=== PATIENT | female | born 1960 | race Caucasian/White ===

== ENCOUNTER 2016-08-23 10:38 | Emergency (ER) | payer OTHER ==
[~2016-08-23] VITALS: Ht 160 cm; Wt 65.0 kg
[2016-08-23 10:42] VITALS: BP 135/85; PULSE 93; RESP 16; TEMP 97.6
[2016-08-23] MEDS ORDERED: SODIUM CHLORIDE 0.9% FLUSH 10 ML FLUSH IVF PRN (10:45)
[2016-08-23] MEDS ORDERED: ACTIVATED CHARCOAL LIQUID 25 GM/120 ML BTL PO/NG ONE (10:45)
[2016-08-23 10:49] VITALS: O2SAT 95
--- NOTE | 2016-08-23 10:49 | PD ---
HPI Chief Complaint: Klonopin OD Time Seen by Provider: 10:44 Travel History International Travel<30 days: No Contact w/Intl Traveler<30days: No History of Present Illness HPI 55-year-old female arrives as a diaz act after she drank alcohol last night and ingested Klonopin evidently by the handful last night and again this morning , most recently about 2 hours prior to ER arrival. Location neuropsychiatric. Severity moderate. Timing constant. She reports a history of prior self harm attempt by medication ingestion. [facility] Social History Tobacco Use: No Allergies-Medications (Allergen,Severity, Reaction): Coded Allergies: Penicillin (Verified Allergy, Mild, 01/15/05) Review of Systems Except as stated in HPI: all other systems reviewed are Neg General / Constitutional: No: Fever, Chills Physical Exam Narrative GENERAL: 55-year-old female affect somewhat flat well-nourished well-developed SKIN: Focused skin assessment warm/dry. HEAD: Atraumatic. Normocephalic. EYES: Pupils equal and round. No scleral icterus. No injection or drainage. ENT: No nasal bleeding or discharge. Mucous membranes pink and moist. NECK: Trachea midline. No JVD. CARDIOVASCULAR: Regular rate and rhythm. No murmur appreciated. RESPIRATORY: No accessory muscle use. Clear to auscultation. Breath sounds equal bilaterally. GASTROINTESTINAL: Abdomen soft, non-tender, nondistended. Hepatic and splenic margins not palpable. MUSCULOSKELETAL: No obvious deformities. No clubbing. No cyanosis. No edema. NEUROLOGICAL: Awake and alert. No obvious cranial nerve deficits. Motor grossly within normal limits. Normal speech. PSYCHIATRIC: Self-harm reported. Flat affect. Data Data Last Documented VS Vital Signs Date Time Temp Pulse Resp B/P Pulse Ox O2 Delivery O2 Flow Rate FiO2 08/23/16 14:01 88 16 118/73 97 08/23/16 12:57 Room Air 08/23/16 10:42 97.6 Orders Electrocardiogram (08/23/16 ) Electrocardiogram (08/23/16 10:44) Complete Blood Count With Diff (08/23/16 10:44) Comprehensive Metabolic Panel (08/23/16 10:44) Iv Access Insert/Monitor (08/23/16 10:44) Ecg Monitoring (08/23/16 10:44) Oximetry (08/23/16 10:44) Psych Screen (08/23/16 10:44) Charcoal Activated Liq (Actidose-Aqua Li (08/23/16 10:45) Sodium Chloride 0.9% Flush (Ns Flush) (08/23/16 10:45) Drug Screen, Random Urine (08/23/16 10:44) Alcohol (Ethanol) (08/23/16 10:44) Salicylates (Aspirin) (08/23/16 10:44) Tylenol (Acetaminophen) (08/23/16 10:44) Sodium Chlor 0.9% 1000 Ml Inj (Ns 1000 M (08/23/16 11:45) Sodium Chlor 0.9% 1000 Ml Inj (Ns 1000 M (08/23/16 11:45) Basic Metabolic Panel (Bmp) (08/23/16 12:14) Labs Laboratory Tests Test 08/23/16 08/23/16 08/23/16 10:50 11:05 13:50 White Blood Count 8.2 TH/MM3 Red Blood Count 4.13 MIL/MM3 Hemoglobin 14.6 GM/DL Hematocrit 42.4 % Mean Corpuscular Volume 102.6 FL Mean Corpuscular Hemoglobin 35.5 PG Mean Corpuscular Hemoglobin 34.6 % Concent Red Cell Distribution Width 14.3 % Platelet Count 256 TH/MM3 Mean Platelet Volume 6.6 FL Neutrophils (%) (Auto) 89.5 % Lymphocytes (%) (Auto) 7.6 % Monocytes (%) (Auto) 2.6 % Eosinophils (%) (Auto) 0.0 % Basophils (%) (Auto) 0.3 % Neutrophils # (Auto) 7.3 TH/MM3 Lymphocytes # (Auto) 0.6 TH/MM3 Monocytes # (Auto) 0.2 TH/MM3 Eosinophils # (Auto) 0.0 TH/MM3 Basophils # (Auto) 0.0 TH/MM3 CBC Comment DIFF FINAL Differential Comment Sodium Level 141 MEQ/L 140 MEQ/L Potassium Level 4.0 MEQ/L 3.8 MEQ/L Chloride Level 105 MEQ/L 108 MEQ/L Carbon Dioxide Level 20.0 MEQ/L 19.4 MEQ/L Anion Gap 16 MEQ/L 13 MEQ/L Blood Urea Nitrogen 24 MG/DL 19 MG/DL Creatinine 1.00 MG/DL 0.88 MG/DL Estimat Glomerular Filtration 57 ML/MIN 66 ML/MIN Rate Random Glucose 104 MG/DL 248 MG/DL Calcium Level 8.9 MG/DL 7.8 MG/DL Total Bilirubin 0.3 MG/DL Aspartate Amino Transf 184 U/L (AST/SGOT) Alanine Aminotransferase 112 U/L (ALT/SGPT) Alkaline Phosphatase 90 U/L Total Protein 7.4 GM/DL Albumin 4.0 GM/DL Salicylates Level 1.8 MG/DL Acetaminophen Level LESS THAN 2.0 MCG/ML Ethyl Alcohol Level 238 MG/DL Urine Opiates Screen NEG Urine Barbiturates Screen NEG Urine Amphetamines Screen NEG Urine Benzodiazepines Screen NEG Urine Cocaine Screen NEG Urine Cannabinoids Screen NEG MDM Medical Decision Making Medical Screen Exam Complete: Yes Emergency Medical Condition: Yes Medical Record Reviewed: Yes Differential Diagnosis Altered mental status/psychosis due to infection/environmental exposure/ metabolic abnormality, polypharmacy, alcohol abuse/intoxication, illicit or prescribed drug abuse, malingering/secondary gain, non-organic psychiatric disease Narrative Course CBC & BMP Diagram 08/23/16 10:50 08/23/16 13:50 Repeat AG is 13 after 2L NS. Pt has been resting comfortably throughout ER stay. Urine tox leroy-negative Salicylates 1.8 APAP < 2.0 AST 184 ALT 112 The history of present illness, ROS, physical exam, review of records and medical workup performed for today's visit have reasonably safely excluded organic etiologies for the patient's presenting complaint. We will continue to monitor the patient carefully in the ER until time of evaluation by the psychiatry service. We are available for any additional medical assistance if needed during the patient's ER course. Disposition per discretion of psychiatry is appreciated. Diagnosis Primary Impression: Suicidal ideation Additional Impressions: Intentional benzodiazepine overdose Qualified Code: T42.4X2A - Intentional benzodiazepine overdose, initial encounter Alcohol intoxication Qualified Code: F10.929 - Alcohol intoxication, with unspecified complication German Devries MD Aug 23, 2016 10:49
[2016-08-23 11:07] LABS: AUTOMATED NEUTROPHIL # 7.3 TH/MM3 (1.8-7.7); BASOPHIL % 0.3 % (0.0-2.0); HEMATOCRIT 42.4 % (35.0-46.0); HEMO FLAGS DIFF FINAL; LYMPH % 7.6 % (9.0-44.0); LYMPHOCYTE # 0.6 TH/MM3 (1.0-4.8); MEAN CELL VOLUME 102.6 FL (80.0-100.0); MEAN CORPUSCULAR HEMOGLOBIN 35.5 PG (27.0-34.0); MEAN CORPUSCULAR HGB CONC 34.6 % (32.0-36.0); MONO % 2.6 % (0.0-8.0); NEUT % 89.5 % (16.0-70.0); PLATELET COUNT 256 TH/MM3 (150-450); RED BLOOD COUNT 4.13 MIL/MM3 (4.00-5.30); RED CELL DISTRIBUTION WIDTH 14.3 % (11.6-17.2); WHITE BLOOD COUNT 8.2 TH/MM3 (4.0-11.0)
[2016-08-23 11:31] LABS: ALT (GPT) 112 U/L (10-53); ANION GAP 16 MEQ/L (5-15); AST (GOT) 184 U/L (15-37); BLOOD UREA NITROGEN 24 MG/DL (7-18); CHLORIDE 105 MEQ/L (98-107); GLOMERULAR FILTRATION RATE 57 ML/MIN (>89); SODIUM (NA) 141 MEQ/L (136-145)
[2016-08-23 11:33] LABS: ACETAMINOPHEN LESS THAN 2.0 MCG/ML (10.0-30.0); ALKALINE PHOSPHATASE 90 U/L (45-117); TOTAL BILIRUBIN ADULT 0.3 MG/DL (0.2-1.0)
[2016-08-23] MEDS ORDERED: SODIUM CHLOR 0.9% 1000 ML INJ 1,000 ML IV ONE ×2 (11:45)
[2016-08-23 12:21] LABS: AMPHETAMINE, URINE NEG (NEG); BARBITURATES, URINE NEG (NEG); COCAINE, URINE NEG (NEG)
[2016-08-23 12:57] VITALS: BP 141/89; PULSE 89; RESP 16; O2SAT 98
[2016-08-23 14:01] VITALS: BP 118/73; PULSE 88; RESP 16; O2SAT 97
[2016-08-23 14:27] LABS: BICARBONATE 19.4 MEQ/L (21.0-32.0); POTASSIUM 3.8 MEQ/L (3.5-5.1)
[2016-08-23 15:47] VITALS: BP 143/92; PULSE 86; RESP 16; TEMP 99.3; O2SAT 95
[2016-08-23] MEDS ORDERED: LORazepam 2 MG TAB PO PRN (17:30)
[2016-08-23] MEDS ORDERED: LORazepam 2 MG/ML VIAL IM PRN ×4 (17:30)
[2016-08-23] MEDS ORDERED: FLUMAZENIL 0.5 MG/5 ML VIAL IV PUSH PRN (17:30)
[2016-08-23] MEDS ORDERED: LEVO100T63 PO (17:55)
[2016-08-23] MEDS ORDERED: VALT1TAB PO (17:55)
[2016-08-23] MEDS ORDERED: CLON.5 PO (17:56)
[2016-08-23] MEDS: LORazepam 1 MG TAB PO PRN (20:27)
[2016-08-24] MEDS: LORazepam 1 MG TAB PO PRN ×3 (00:24→13:15)
[2016-08-24 02:32] VITALS: BP 135/79; PULSE 79; RESP 18; O2SAT 98
[2016-08-24 06:23] VITALS: BP 132/80; PULSE 79; RESP 18; O2SAT 99
[2016-08-24 09:54] VITALS: BP 139/92; PULSE 73; RESP 18
[2016-08-24 13:25] VITALS: BP 148/88; PULSE 76; RESP 18; O2SAT 99
--- NOTE | 2016-08-24 15:10 | EKG ---
Date Performed: 08/23/2016 Time Performed: 10:45:12 PTAGE: 55 years EKG: Sinus tachycardia Generalized low voltage Borderline left axis deviation NO PREVIOUS TRACING DOCTOR: Srinivasan Alvarado Interpretating Date/Time 08/24/2016 15:09:13
--- NOTE | 2016-08-24 15:45 | MB ---
cc: JACKIE MAYS DATE OF CONSULTATION: 08/24/2016. REASON FOR CONSULTATION: Live Act. PHYSICIAN REQUESTING CONSULTATION: Emergency department. HISTORY OF PRESENT ILLNESS Ms. Daigle is a 55-year-old female with a reported history of alcohol use disorder who presents under Live Act by law enforcement alleging overdose. Reviewing the electronic medical record, I see no prior psychiatric contact within our system. Of note, the patient's alcohol level was elevated to 138 on presentation here. The patient was seen and examined. Chart reviewed. Case discussed with nurse in the J pod. There has been no evidence of any suicidality or homicidality while the patient has been under observation in the J pod. On my examination today, the patient reports that she had been drinking heavily yesterday. She says that she wanted to get to sleep and so she took four of her Klonopin tablets that she is prescribed by her primary care doctor for anxiety. She says that she woke up somewhat later and got frustrated and so downed the whole bottle. She is unsure but there may have been some sort of suicidal intent at the time, although she was intoxicated. In any event, she immediately called 9-1-1. She is glad to have survived her overdose and denies any ongoing suicidal ideation. 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 She also notes that she enjoys her life most of the time. She does feel humiliated and ashamed because of her ongoing issues with her alcohol use disorder but I can elicit no ruth depressive or hypomanic / manic symptoms in this patient at this time. She denies any audiovisual hallucinations and I can elicit no delusional beliefs. The remainder of the psychiatric review of systems is negative. The patient does not wish to be psychiatrically hospitalized at this time but is agreeable to referral for transfer for detoxification and alcohol rehabilitation services. Nursing staff has obtained collateral from the patient's family to the effect that they have no concerns about the patient's safety and are willing to assume care of her case. PAST PSYCHIATRIC HISTORY: The patient denies a history of psychiatric diagnosis. She is not under the care of a psychiatrist. She denies any history of psychiatric admissions or suicide attempts. FAMILY HISTORY: The patient denies family history of serious mental illness or suicide. She reports her brother is an alcoholic. No other family psychiatric history. CHEMICAL DEPENDENCY HISTORY: The patient reports that she drinks six or eight mixed drinks a day. She denies any history of blackouts. Her longest sober time was on the order of nine months with the assistance of alcoholic anonymous. She also has done residential rehabilitation in the past. She denies any history of DTs or seizures. Denies any other substance use. SOCIAL HISTORY: The patient reports that she lives alone. She is single. She has a son age 26. 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 She denies any or legal history. Denies any access to guns or firearms. She was raised [place] and believes in God. PAST MEDICAL HISTORY: Includes a history hypothyroidism. Please see electronic medical record. REVIEW OF SYSTEMS: Some tremor reported in the context of alcohol withdrawal but no reported headache, vision or hearing changes, chest pain, shortness of breath, bowel or bladder issues. No other physical complaints. PHYSICAL EXAMINATION: VITAL SIGNS: Temperature is 99.3, pulse 73, respirations 18, blood pressure 139/92, pulse oximetry 99% on room air. Physical examination was completed by the ED provider. On my examination today, the patient is somewhat tremulous but no other motoric abnormalities noted. Mildly diaphoretic. LABORATORY DATA: Reviewed. CBC is significant for macrocytosis without anemia. CMP reveals decreased GFR at 66, mild hyperglycemia and transaminitis. Toxicology is negative. Alcohol level 238. MENTAL STATUS EXAMINATION: The patient is in hospital gown. She is somewhat disheveled but maintaining basic hygiene. She is awake, alert and oriented x3. No evidence of delirium. Motor exam as noted above. Speech is within normal limits for rate, tone and volume. Language and fund of knowledge seem average. Memory seems grossly intact except for the period of acute intoxication last night. Memory mood is somewhat dysphoric but not severely depressed. Affect is blunted. Thought process linear. No loosening of associations. No evident delusions. Denies audiovisual hallucinations. Denies ongoing suicidal or homicidal ideation, intent or plan. Insight and judgment are fair to poor at best. ASSESSMENT AND PLAN: Alcohol dependence with intoxication, intoxication now resolved, F10.220. This is a 55-year-old female with psychiatric history as detailed above who presents under Live Act following ingestion of her Klonopin in the setting of alcohol intoxication. This morning, she is clinically sober and perhaps beginning to withdraw somewhat. She denies any suicidal or homicidal ideation at this time. She is humiliated by her ongoing alcohol use but I can detect no unstable mood, anxiety or psychotic disorder in this patient at this time. She appears to be attending to her basic needs. Given that her issues are primarily substance-related, the patient does not meet Live Act criteria, and I have lifted the Live Act. I have recommended that she allow us to transfer her directly to a detoxification unit for the management of her withdrawal as she remains committed to regain her sobriety from alcohol with subsequent drug and alcohol rehabilitation. The patient is agreeable to this. I have lifted the Live Act and instructed the nursing staff to begin exploring placement options at a detoxification facility. The patient has a CIWA scale with Ativan already ordered for the management of withdrawal. Thank you very much for this consultation. Jackie Mays DC/MO /12:42 PM /3:34 PM HUMAIRA
== END 2016-08-24 15:35 | disposition left against medical advice (07) ==
LOC: NEPE 10:38 → NEPJ 08-24 15:35
DX: T42.4X2A Poisoning by benzodiazepines, intentional self-harm, initial encounter (principal); R94.31 Abnormal electrocardiogram [ECG] [EKG]; F10.229 Alcohol dependence with intoxication, unspecified; F19.90 Other psychoactive substance use, unspecified, uncomplicated; Z88.0 Allergy status to penicillin; Y92.9 Unspecified place or not applicable; Y90.7 Blood alcohol level of 200-239 mg/100 ml
CPT/HCPCS: 80053; 80307; 85025; 93005; 99284; J7030; 80048